=== PATIENT | female | born 1980 | race Caucasian/White ===

== ENCOUNTER → 2019-06-26 16:38 | Outpatient (CLI) | payer BC, SELFPAY ==
--- NOTE | 2019-06-26 16:40 | MM_ITS ---
PROCEDURE: MM DIG SCREENING MAMM BI W/CAD CLINICAL INDICATION: routine screening mammogram There is no personal or family history of breast cancer. COMPARISON: None, this is baseline exam TECHNIQUE: Standard CC and MLO images were obtained. R2 CAD reviewed. FINDINGS: Scattered diffuse fibroglandular densities are seen in both breast most prominent in the upper outer quadrants. There is slightly asymmetrically increased glandular elements in the upper central portion of the left breast. However is no suspicious lesion in either breast and no suspicious microcalcifications. IMPRESSION: Moderate breast density with no suspicious lesions seen BI-RAD Category: 1 Negative FOLLOW-UP: 1YR 1 Year Follow-up (A letter has been sent to the patient regarding results of the study.) Dictated by: Dr. Bebeto Damon MD 06/28/2019 14:[address] Bebeto Damon MD in [place] 06/28/2019 14:00
== END ==
PROVIDERS: PCP Internal Medicine Adolescent Medicine; Visit Provider Nurse Practitioner Obstetrics & Gynecology
DX: Z12.31 Encounter for screening mammogram for malignant neoplasm of breast (principal)
CPT/HCPCS: 77067

== ENCOUNTER → 2019-07-11 10:07 | Outpatient (CLI) | payer BC, SELFPAY ==
[2019-07-11 11:08] LABS: Alanine Aminotransferase 19 U/L (12-78); Albumin Level 4.5 gm/dL (3.4-5.0); Albumin/Globulin Ratio 1.4 (1.1-1.8); Alkaline Phosphatase 60 U/L (46-116); Aspartate Amino Transferase 14 U/L (15-37); Bilirubin,Total 0.8 mg/dL (0.2-1.0); Blood Urea Nitrogen 12 mg/dL (7-18); Calcium 9.1 mg/dL (8.5-10.1); Carbon Dioxide 27 mmol/L (21.0-32.0); Chloride 106 mmol/L (98-107); Chol/HDL Ratio 2.4 (1-3.5); Cholesterol 176 mg/dL (140-200); Creatinine,Serum 0.77 mg/dL (0.55-1.02); Estimated Glomerular Filt Rate 83 ml/min (>60); GFR (African American) 101 ML/MIN (>60); Globulin 3.2 gm/dl (1.3-3.2); Glucose 87 mg/dL (74-106); HDL Cholesterol 73 mg/dL (29-89); LDL Cholesterol 94 mg/dL (0-130); Sodium 140 mmol/L (136-145); Total Protein,Serum 7.7 gm/dL (6.4-8.2); Triglycerides 45 mg/dL (30-200); VLDL Cholesterol 9 mg/dL (0-40)
== END ==
PROVIDERS: Visit Provider Nurse Practitioner Family
DX: Z00.00 Encounter for general adult medical examination without abnormal findings (principal)
CPT/HCPCS: 36415; 80053; 80061

== ENCOUNTER 2023-10-31 16:09 | Outpatient (POV) | payer BC, SELFPAY | END 2023-10-31 23:59 | disposition home or self-care (01) | LOC: SC 16:09 | PROVIDERS: PCP Internal Medicine Adolescent Medicine; Visit Provider Dermatology | DX: Z00.00 Encounter for general adult medical examination without abnormal findings (principal) ==